=== PATIENT | female | born 1950 | race Caucasian/White ===

== ENCOUNTER 2020-12-05 09:15 | Emergency (ER) | payer MEDICARE, OTHER ==
[~2020-12-05] VITALS: Ht 177.8 cm; Wt 70.0 kg
[2020-12-05] MEDS ORDERED: [UNRECOGNIZED DRUG - OTHER] (10:19)
[2020-12-05 11:40] VITALS: BP 113/63
== END 2020-12-05 11:40 | disposition home or self-care (01) ==
LOC: ED 09:15
PROC: 2W3QX1Z Immobilization of Right Lower Leg using Splint (ICD-10-PCS; principal; 2020-12-05)
DX: S92.101A Unspecified fracture of right talus, initial encounter for closed fracture (principal); W01.0XXA Fall on same level from slipping, tripping and stumbling without subsequent striking against object, initial encounter; Y92.009 Unspecified place in unspecified non-institutional (private) residence as the place of occurrence of the external cause